=== PATIENT | female | born 1990 | race African-American/Black ===

== ENCOUNTER 2018-06-23 07:53 | Emergency (ER) | payer OTHER ==
[2018-06-23 07:59] VITALS: BMI 21.1
[2018-06-23] MEDS ORDERED: ONDANSETRON 4 MG/2 ML VIAL IVPUSH ONE (08:15)
[2018-06-23] MEDS ORDERED: ACETAMINOPHEN 1000 MG/100 ML VIAL (NON FORMULARY) IVPB ONE (08:15)
[2018-06-23] MEDS ORDERED: SODIUM CHLORIDE 1,000 ML IV STA (08:15)
--- NOTE | 2018-06-23 08:20 | PDOC ---
*Physical Exam - Vital Signs Last Vital Signs Temp Pulse Resp BP Pulse Ox 97.8 F 72 16 111/57 L 100 06/23/18 07:56 06/23/18 07:56 06/23/18 07:56 06/23/18 07:56 06/23/18 07:56 ED Treatment Course - LABORATORY CBC & Chemistry Diagram: 06/23/18 08:30 06/23/18 08:30 Medical Decision Making - Medical Decision Making 06/23/18 08:19 28 yo F presenting with a complaint of abdominal pain No fevers or chills (+) nausea predominantly RLQ pain Pt seen by Midlevel Provider under my direct supervision Pt interviewed and examined Ancillary studies reviewed I agree with plan as outlined by Midlevel Provider 06/23/18 11:24 Laboratory Tests 06/23/18 06/23/18 06/23/18 08:30 08:30 08:31 WBC 7.1 Hgb 13.7 Hct 39.3 Plt Count 243 Beta HCG, Quant 44412.9 Urine Ketones 1+ H Urine Blood Negative Urine Nitrite Negative Urine WBC (Auto) 10 Urine RBC (Auto) 1 U Epithel Cells (Auto) 4.6 Urine Bacteria (Auto) 22.356 06/23/18 11:24 US - 7 weeks 2 days, HR 140, Left ovarian septated cyst 06/23/18 11:25 Clinical Impression: normal , initial presentation *DC/Admit/Observation/Transfer Diagnosis at time of Disposition: Abdominal pain in - Discharge Dispostion Disposition: HOME Condition at time of disposition: Stable - Prescriptions Prescriptions: Cephalexin Monohydrate [Keflex -] 500 mg PO BID #14 capsule - Referrals Referrals: Montserrat Whatley [Primary Care Provider] - 2 Days - Patient Instructions Additional Instructions: Thank you for choosing [facility]. It was a pleasure taking care of you. You were found to be Please start taking prenatals daily Take Keflex for urine infection Stay hydrated Follow-up with [facility] for further care Return to the Emergency Department if your symptoms worsen or persist, you have fever, shortness of breath, chest pain, severe abdominal pain, vomiting, vaginal bleeding or other concerning symptoms. - Post Discharge Activity
[2018-06-23] MEDS ORDERED: ACETAMINOPHEN INJECTION 100 ML IVPB ONE (08:32)
[2018-06-23] MEDS ORDERED: ONDANSETRON 4 MG/2 ML VIAL ONE (08:33)
[2018-06-23 08:50] LABS: HCG,QUALITATIVE URINE Positive
--- NOTE | 2018-06-23 09:00 | PDOC ---
History of Present Illness - General Chief Complaint: Pain, Acute Stated Complaint: VOMITING/ABD PAIN/SORE THROAT Time Seen by Provider: 06/23/18 08:08 History Source: Patient Exam Limitations: No Limitations Past History - Past Medical History Allergies/Adverse Reactions: Allergies Allergy/AdvReac Type Severity Reaction Status Date / Time hinds flavor Allergy Severe ANAPHYLAXIS Verified 06/23/18 07:55 FROM [facility]ERRIES No Known Drug Allergies Allergy Verified 06/23/18 07:55 [facility]ERRIES Allergy Severe anaphylaxis Uncoded 06/23/18 07:55 Home Medications: Ambulatory Orders Cephalexin Monohydrate [Keflex -] 500 mg PO BID #14 capsule 06/23/18 Anemia: No Asthma: No Cancer: No Cardiac Disorders: No CVA: No COPD: No CHF: No Dementia: No Diabetes: No GI Disorders: No Disorders: No HTN: No Hypercholesterolemia: No Kidney Stones: No Liver Disease: No Seizures: No Thyroid Disease: No - Surgical History Abdominal Surgery: No Appendectomy: No Cardiac Surgery: No Cholecystectomy: No Lung Surgery: No Neurologic Surgery: No Orthopedic Surgery: No - Reproductive History Is Patient Now?: No (#): 8 Para: 2 Cervical CA: No Dysfunctional Uterine Bleeding: No Ectopic : No Endometrial CA: No PID: No Polycystic Ovaries: No Therapeutic (s) & number: Yes Tubal Ligation: No Spontaneous : 3 - Immunization History Immunization Up to Date: Yes - Suicide/Smoking/Psychosocial Hx Smoking History: Current every day smoker Have you smoked in the past 12 months: No Number of Cigarettes Smoked Daily: 10 Information on smoking cessation initiated: No 'Breaking Loose' booklet given: 09/01/15 Hx Alcohol Use: No Drug/Substance Use Hx: Yes (MARIJUANA) Substance Use Type: Marijuana Hx Substance Use Treatment: Yes (uncompleted 3E) Abd/GI Specific PMHX - Complaint Specific PMHX Hepatitis: No Pancreatitis: No *Physical Exam - Vital Signs Last Vital Signs Temp Pulse Resp BP Pulse Ox 97.8 F 72 16 111/57 L 100 06/23/18 07:56 06/23/18 07:56 06/23/18 07:56 06/23/18 07:56 06/23/18 07:56 - Physical Exam General Appearance: No: Apparent Distress Respiratory/Chest: positive: Lungs Clear, Normal Breath Sounds. negative: Respiratory Distress Cardiovascular: positive: Regular Rhythm, Regular Rate, S1, S2. negative: Murmur Female Pelvic Exam: positive: normal external exam, cervical os closed, adnexal tenderness (B/L adnexal tenderness). negative: discharge, lesions, vaginal bleeding Gastrointestinal/Abdominal: positive: Tender (diffuse TTP, more along RLQ), Soft. negative: Distended, Guarding, Rebound Integumentary: positive: Normal Color Neurologic: positive: Alert, Normal Mood/Affect Moderate Sedation - Procedure Monitoring Vital Signs: Procedure Monitoring Vital Signs Temperature 97.8 F 06/23/18 07:56 Pulse Rate 72 06/23/18 07:56 Respiratory Rate 16 06/23/18 07:56 Blood Pressure 111/57 L 06/23/18 07:56 O2 Sat by Pulse Oximetry (%) 100 06/23/18 07:56 ED Treatment Course - LABORATORY CBC & Chemistry Diagram: 06/23/18 08:30 06/23/18 08:30 Medical Decision Making - Medical Decision Making 28 y/o F with no sig pmh presents with lower abdominal pain and NBNB emesis from yesterday. LNMP May 2018 (has irregular periods). Denies fever, sob, cp, diarrhea, urinary complaints, vaginal discharge, vag bleeding. Denies prior abdominal surgeries. Denies heavy alcohol use. Only smokes marijuana occasionally. Consider appendicitis, ruptured ovarian cyst; not suspicious for ovarian torsion , PID Plan: r/o , labs, UA, IVF, Zofran, Tylenol, reassess 06/23/18 08:57 Patient found to be incidentally Bhcg >[id number] Pelvic ultrasound results pending to r/o ectopic 06/23/18 10:10 US confirms IUP; patient given copy of her ultrasound report UA shows 1+ leuks, mild pyuria - will treat given patient Patient has [facility] for follow-up Appears well, is tolerating PO Stable for dc 06/23/18 11:42 *DC/Admit/Observation/Transfer Diagnosis at time of Disposition: Abdominal pain in - Discharge Dispostion Disposition: HOME Condition at time of disposition: Stable Decision to Admit order: No - Prescriptions Prescriptions: Cephalexin Monohydrate [Keflex -] 500 mg PO BID #14 capsule - Referrals Referrals: Montserrat Whatley [Primary Care Provider] - 2 Days - Patient Instructions Additional Instructions: Thank you for choosing [facility]. It was a pleasure taking care of you. You were found to be Please start taking prenatals daily Take Keflex for urine infection Stay hydrated Follow-up with [facility] for further care Return to the Emergency Department if your symptoms worsen or persist, you have fever, shortness of breath, chest pain, severe abdominal pain, vomiting, vaginal bleeding or other concerning symptoms. - Post Discharge Activity
[2018-06-23 09:01] LABS: BASO % 0.7 % (0-2.0); EOS % 1.2 % (0-4.5); HEMATOCRIT 39.3 % (32.4-45.2); HEMOGLOBIN 13.7 GM/dL (10.7-15.3); LYMPH % 16.9 % (8-40); MCH 32.8 pg (25.7-33.7); MCHC 34.9 g/dl (32.0-36.0); MEAN CELL VOLUME 93.9 fl (80-96); MEAN PLT VOLUME 8.4 fl (7.5-11.1); NEUT % 73.2 % (42.8-82.8); PLATELET COUNT 243 K/MM3 (134-434); RBC 4.19 M/mm3 (3.60-5.2); RDW 13.9 % (11.6-15.6); WHITE BLOOD COUNT 7.1 K/mm3 (4.0-10.0)
[2018-06-23 09:03] LABS: EPI CELLS 4.6 /HPF (0-5); HYALINE CASTS 14 /hpf (0-8); PH,URINE 8.5 (5.0-8.0); URINE APPEARANCE CLEAR; URINE BACTERIA 22.356 /hpf (NEGATIVE); URINE BILIRUBIN NEGATIVE (<2.0 mg/dL); URINE COLOR YELLOW; URINE GLUCOSE (UA) NEGATIVE (NEGATIVE); URINE KETONE 1+ (NEGATIVE); URINE LEUK ESTERASE 1+ (NEGATIVE); URINE NITRITE NEGATIVE (NEGATIVE); URINE PROTEIN TRACE (NEGATIVE); URINE RBC 1 /hpf (0-4); URINE WBC 10 /hpf (0-5)
[2018-06-23 09:16] LABS: ALBUMIN 3.6 g/dl (3.4-5.0); ALK PHOS 53 U/L (45-117); ANION GAP 6 MMOL/L (8-16); BILIRUBIN,TOTAL 0.4 mg/dL (0.2-1); BLOOD UREA NITROGEN 6 mg/dL (7-18); CALCIUM 8.7 mg/dL (8.5-10.1); CHLORIDE 106 mmol/L (98-107); CO2 26 mmol/L (21-32); CREATININE 0.7 mg/dL (0.55-1.3); GLUCOSE,RANDOM 73 mg/dL (74-106); LIPASE 96 U/L (73-393); POTASSIUM 4.2 mmol/L (3.5-5.1); SGOT/AST 22 U/L (15-37); SGPT/ALT 20 U/L (13-61); SODIUM 137 mmol/L (136-145); TOT PROT 6.6 g/dl (6.4-8.2)
[2018-06-23] MEDS ORDERED: CEPHALEXIN MONOHYDRATE 500 MG CAPSULE (UD) PO ONE (11:30)
[2018-06-23] MEDS ORDERED: CEPHALEXIN MONOHYDRATE 500 MG CAPSULE (UD) ONE (11:38)
[2018-06-23 12:01] VITALS: BP 101/51; PULSE 62; TEMP 99.4
== END 2018-06-23 12:07 | disposition home or self-care (01) ==
LOC: JER 07:53
PROC: 3E033NZ Introduction of Analgesics, Hypnotics, Sedatives into Peripheral Vein, Percutaneous Approach (ICD-10-PCS; principal; 2018-06-23)
PROC: 3E033GC Introduction of Other Therapeutic Substance into Peripheral Vein, Percutaneous Approach (ICD-10-PCS; 2018-06-23)
DX: O26.891 Other specified pregnancy related conditions, first trimester (principal); O23.31 Infections of other parts of urinary tract in pregnancy, first trimester; O34.81 Maternal care for other abnormalities of pelvic organs, first trimester; N83.292 Other ovarian cyst, left side; Z3A.01 Less than 8 weeks gestation of pregnancy
CPT/HCPCS: 36415; 76817-TC; 80053; 81003; 83690; 84702; 84703; 85025; 96374; 96375; 99283-25; J0131; J7030

== ENCOUNTER 2018-12-17 09:50 | Emergency (ER) | payer OTHER | END 2018-12-17 14:00 | disposition home or self-care (01) | LOC: JER 09:50 ==

== ENCOUNTER 2018-12-18 17:36 | Emergency (ER) | payer OTHER ==
--- NOTE | 2018-12-18 17:51 | PDOC ---
Rapid Medical Evaluation Medical Evaluation: Allergies Allergy/AdvReac Type Severity Reaction Status Date / Time hinds flavor Allergy Severe ANAPHYLAXIS Verified 12/17/18 11:08 FROM [facility]ERRIES No Known Drug Allergies Allergy Verified 12/17/18 11:08 [facility]ES Allergy Severe anaphylaxis Uncoded 12/17/18 11:08 I have performed a brief in-person evaluation of this patient. The patient presents with a chief complaint of: c/o vaginal bleeding x 3 days; was seen yesterday and had full workup done; states returned as bleeding got heavier along with passing clots Pertinent physical exam findings: In nad, pelvic deferred I have ordered the following: bhcg, pelvic US The patient will proceed to the ED for further evaluation. 12/18/18 17:50 Discharge Disposition - Referrals Referrals: Montserrat Whatley [Primary Care Provider] - - Patient Instructions - Post Discharge Activity
[2018-12-18 17:54] VITALS: TEMP 98.9; BMI 21.9
--- NOTE | 2018-12-18 19:25 | PDOC ---
History of Present Illness - General Chief Complaint: Vaginal Bleeding Stated Complaint: Vaginal Bleeding Time Seen by Provider: 12/18/18 17:50 History Source: Patient - History of Present Illness Initial Comments: 12/18/18 19:25 28 y/o F [id number] who presents to the ER today for repeat beta hcg abd US. patient seen in Ed yesterday. The patient states that she took a home test last week. today with minimal bleeding using a liner. denies pelvic pain, NV, urinary symptoms. Past History - Past Medical History Allergies/Adverse Reactions: Allergies Allergy/AdvReac Type Severity Reaction Status Date / Time hinds flavor Allergy Severe ANAPHYLAXIS Verified 12/18/18 17:53 FROM [facility]ERRIES No Known Drug Allergies Allergy Verified 12/18/18 17:53 [facility]ES Allergy Severe anaphylaxis Uncoded 12/18/18 17:53 Home Medications: Ambulatory Orders NK [No Known Home Medication] 12/17/18 Anemia: No Asthma: No Cancer: No Cardiac Disorders: No CVA: No COPD: No CHF: No Dementia: No Diabetes: No GI Disorders: No Disorders: No HTN: No Hypercholesterolemia: No Kidney Stones: No Liver Disease: No Psychiatric Problems: Yes (panic attacks) Seizures: No Thyroid Disease: No - Surgical History Abdominal Surgery: No Appendectomy: No Cardiac Surgery: No Cholecystectomy: No Lung Surgery: No Neurologic Surgery: No Orthopedic Surgery: No - Reproductive History (#): 8 Para: 2 Cervical CA: No Dysfunctional Uterine Bleeding: No Ectopic : No Endometrial CA: No PID: No Polycystic Ovaries: No Therapeutic (s) & number: Yes Tubal Ligation: No Spontaneous : 3 - Immunization History Immunization Up to Date: Yes - Suicide/Smoking/Psychosocial Hx Smoking History: Current every day smoker Have you smoked in the past 12 months: No Number of Cigarettes Smoked Daily: 0 Information on smoking cessation initiated: Yes 'Breaking Loose' booklet given: 09/01/15 Hx Alcohol Use: No Drug/Substance Use Hx: No Substance Use Type: Marijuana Hx Substance Use Treatment: Yes (uncompleted 3E) Abd/GI Specific PMHX - Complaint Specific PMHX Hepatitis: No Pancreatitis: No Review of Systems - Review of Systems Able to Perform ROS?: Yes Is the patient limited [place] proficient: No Constitutional: No: Symptoms Reported, See HPI, Chills, Diaphoresis, Fever, Loss of Appetite, Malaise, Night Sweats, Weakness, Weight Stable, Unintentional Wgt. Loss, Unexplained wgt Loss, Other ABD/GI: No: Symptoms Reported, See HPI, Abdominal Distended, Abd. Pain w/ defecation, Blood Streaked Bowels, Constipated, Diarrhea, Difficulty Swallowing , Nausea, Poor Appetite, Poor Fluid Intake, Rectal Bleeding, Vomiting, Indigestion, Abdominal cramping, Tarry Stools, Other : Yes: Other (vaginal bleeding) *Physical Exam - Vital Signs Last Vital Signs Temp Pulse Resp BP Pulse Ox 98.9 F 77 17 115/75 100 12/18/18 17:51 12/18/18 17:51 12/18/18 17:51 12/18/18 17:51 12/18/18 17:51 - Physical Exam General Appearance: Yes: Moderate Distress Respiratory/Chest: positive: Lungs Clear, Normal Breath Sounds Gastrointestinal/Abdominal: positive: Normal Bowel Sounds, Soft. negative: Tender Integumentary: positive: Normal Color, Dry, Warm Neurologic: positive: load out worker II-XII NML intact, Fully Oriented, Alert, Normal Mood/ Affect ED Treatment Course - ADDITIONAL ORDERS Additional order review: Laboratory Results 12/18/18 18:06 Beta HCG, Quant 146.1 Progress Note - Progress Note Progress Note: A: miscarriage P: labs TVUS *DC/Admit/Observation/Transfer Diagnosis at time of Disposition: Miscarriage - Discharge Dispostion Disposition: HOME - Referrals Referrals: Montserrat Whatley [Primary Care Provider] - - Patient Instructions Printed Discharge Instructions: DI for Vaginal Bleeding Additional Instructions: return to the ER if you are soaking 2 pads per hour, severe abdominal pain, or worsening symptoms. 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
[2018-12-18 20:00] VITALS: BP 105/51; PULSE 76
== END 2018-12-18 20:01 | disposition home or self-care (01) ==
LOC: JER 17:36
DX: O26.891 Other specified pregnancy related conditions, first trimester (principal); O02.1 Missed abortion; Z3A.01 Less than 8 weeks gestation of pregnancy
CPT/HCPCS: 36415; 76817-TC; 84702; 99283-25

== ENCOUNTER 2019-11-12 14:42 | Emergency (ER) | payer OTHER ==
[2019-11-12 14:50] VITALS: BP 118/77; PULSE 76; TEMP 98.9; BMI 29.7
[2019-11-12] MEDS ORDERED: ACETAMINOPHEN 500 MG TABLET (FP) PO ONE (14:52)
--- NOTE | 2019-11-12 14:52 | PDOC ---
Rapid Medical Evaluation Chief Complaint: Pain, Acute Time Seen by Provider: 11/12/19 14:48 Medical Evaluation: Allergies Allergy/AdvReac Type Severity Reaction Status Date / Time hinds flavor Allergy Severe ANAPHYLAXIS Verified 12/18/18 17:53 FROM [facility]ERRIES No Known Drug Allergies Allergy Verified 12/18/18 17:53 [facility] Allergy Severe anaphylaxis Uncoded 12/18/18 17:53 11/12/19 14:48 I have performed a brief in-person evaluation of this patient. CC: lower abd pain x2 weeks; LMP- 09/24 PE: No focal findings Orders: labs, urine Patient will proceed to ED for further evaluation. Discharge Disposition - Diagnosis Lower abdominal pain - Discharge Dispostion Condition at time of disposition: Stable - Referrals - Patient Instructions - Post Discharge Activity
[2019-11-12] MEDS ORDERED: ACETAMINOPHEN 325 MG TABLET (FP) ONE (15:10)
[2019-11-12 15:22] LABS: BASO % 1.3 % (0-2.0); EOS % 3.1 % (0-4.5); HEMOGLOBIN 14.3 GM/dL (10.7-15.3); LYMPH % 33.2 % (8-40); MCH 30.7 pg (25.7-33.7); MCHC 33.2 g/dl (32.0-36.0); MEAN CELL VOLUME 92.5 fl (80-96); MEAN PLT VOLUME 9.2 fl (7.5-11.1); NEUT % 50.4 % (42.8-82.8); PLATELET COUNT 275 K/MM3 (134-434); RBC 4.65 M/mm3 (3.60-5.2); RDW 14.5 % (11.6-15.6)
[2019-11-12 15:23] LABS: URINE APPEARANCE Error; URINE BILIRUBIN NEGATIVE (NEGATIVE); URINE COLOR YELLOW; URINE GLUCOSE (UA) NEGATIVE (NEGATIVE); URINE KETONE NEGATIVE (NEGATIVE); URINE LEUK ESTERASE NEGATIVE (NEGATIVE); URINE NITRITE NEGATIVE (NEGATIVE); URINE PROTEIN NEGATIVE (NEGATIVE)
[2019-11-12 15:27] LABS: HCG,QUALITATIVE URINE Negative
--- NOTE | 2019-11-12 15:27 | PDOC ---
History of Present Illness - General Chief Complaint: Pain, Acute Stated Complaint: ABD PAIN Time Seen by Provider: 11/12/19 14:48 History Source: Patient - History of Present Illness Timing/Duration: reports: intermittent Quality: reports: mild Past History - Medical History Allergies/Adverse Reactions: Allergies Allergy/AdvReac Type Severity Reaction Status Date / Time hinds flavor Allergy Severe ANAPHYLAXIS Verified 12/18/18 17:53 FROM [facility]ERRIES No Known Drug Allergies Allergy Verified 12/18/18 17:53 [facility]ES Allergy Severe anaphylaxis Uncoded 12/18/18 17:53 Home Medications: Ambulatory Orders NK [No Known Home Medication] 12/17/18 Anemia: No Asthma: No Cancer: No Cardiac Disorders: No CVA: No COPD: No CHF: No Dementia: No Diabetes: No GI Disorders: No Disorders: No HTN: No Hypercholesterolemia: No Kidney Stones: No Liver Disease: No Psychiatric Problems: Yes (panic attacks) Seizures: No Thyroid Disease: No - Surgical History Abdominal Surgery: No Appendectomy: No Cardiac Surgery: No Cholecystectomy: No Lung Surgery: No Neurologic Surgery: No Orthopedic Surgery: No - Reproductive History Is Patient Now?: No (#): 8 Para: 2 Cervical CA: No Dysfunctional Uterine Bleeding: No Ectopic : No Endometrial CA: No PID: No Polycystic Ovaries: No Therapeutic (s) & number: Yes Tubal Ligation: No Spontaneous : 3 - Immunization History Immunization Up to Date: Yes - Psycho-Social/Smoking History Smoking History: Current every day smoker Have you smoked in the past 12 months: Yes Number of Cigarettes Smoked Daily: 0 Information on smoking cessation initiated: No 'Breaking Loose' booklet given: 09/01/15 - Substance Abuse Hx (Audit-C & DAST Scrn) How often the patient has a drink containing alcohol: Never Score: In Men: 4 or > Positive; In Women: 3 or > Positive: 0 Screen Result (Pos requires Nsg. Audit-10AR): Negative In the last yr the pt used illegal drug/Rx for NonMed reason: No Score: Yes response is considered Positive: 0 Screen Result (Positive result requires Nsg. DAST-10): Negative Abd/GI Specific PMHX - Complaint Specific PMHX Hepatitis: No Pancreatitis: No Review of Systems - Review of Systems Constitutional: No: Chills, Fever ABD/GI: No: Blood Streaked Bowels, Constipated, Diarrhea, Nausea, Vomiting, Tarry Stools : No: Dysuria, Flank Pain *Physical Exam - Vital Signs Last Vital Signs Temp Pulse Resp BP Pulse Ox 98.9 F 76 18 118/77 100 11/12/19 14:46 11/12/19 14:46 11/12/19 14:46 11/12/19 14:46 11/12/19 14:46 - Physical Exam General Appearance: Yes: Appropriately Dressed. No: Apparent Distress HEENT: positive: Normal Voice Neck: positive: Supple Respiratory/Chest: negative: Respiratory Distress Gastrointestinal/Abdominal: positive: Soft. negative: Tender Musculoskeletal: negative: CVA Tenderness Integumentary: positive: Dry, Warm Neurologic: positive: Fully Oriented, Alert, Normal Mood/Affect ED Treatment Course - LABORATORY CBC & Chemistry Diagram: 11/12/19 15:00 11/12/19 15:00 - ADDITIONAL ORDERS Additional order review: Laboratory Results 11/12/19 15:00 Urine Color Yellow Urine Appearance Error Urine pH 7.0 D Ur Specific [place] 1.022 Urine Protein Negative Urine Glucose (UA) Negative Urine Ketones Negative Urine Blood Negative Urine Nitrite Negative Urine Bilirubin Negative Urine Urobilinogen 1.0 Ur Leukocyte Esterase Negative 11/12/19 15:00 RBC 4.65 MCV 92.5 MCHC 33.2 RDW 14.5 MPV 9.2 Neutrophils % 50.4 D Lymphocytes % 33.2 D Monocytes % 12.0 H Eosinophils % 3.1 Basophils % 1.3 - Medications Given in the ED: ED Medications Discontinued Medications Generic Name Dose Route Start Last Admin Trade Name Yandel PRN Reason Stop Dose Admin Acetaminophen 975 mg 11/12/19 14:52 11/12/19 15:13 Tylenol - PO 11/12/19 14:53 975 mg ONCE ONE Administration Medical Decision Making - Medical Decision Making 11/12/19 15:26 29 yo F, , s/p multiple spontaneous and elec abs, LMP 09/24 and here w/ lower abd discomfort on and off x 2 weeks. No bag discharge, dysuria, change in BM, n/v/f/c. States she gets menses once a month but that "sometimes I'm irregular". Has not taken a home preg test see exam Lower abd pain x 2 weeks Asx now Well mingo and stable w/ benign abd Labs/ua wnl, upreg neg Will not image at this time given duration of sxs and unimpressive abd To return as needed, otherwise f/u with PMD Discharge - Discharge Information Problems reviewed: Yes Clinical Impression/Diagnosis: Lower abdominal pain Condition: Improved Disposition: HOME - Follow up/Referral Referrals: Montserrat Whatley [Primary Care Provider] - - Patient Discharge Instructions Patient Printed Discharge Instructions: DI for Abdominal Pain-Adult Additional Instructions: The cause of your abdominal pain is unclear at this time as your labs were all normal Please follow up with your PMD if pain persists - Post Discharge Activity
[2019-11-12 15:45] LABS: ALBUMIN 3.8 g/dl (3.4-5.0); ALK PHOS 65 U/L (45-117); ANION GAP 10 MMOL/L (8-16); BILIRUBIN,TOTAL 0.5 mg/dL (0.2-1); BLOOD UREA NITROGEN 11.3 mg/dL (7-18); CALCIUM 9.1 mg/dL (8.5-10.1); CHLORIDE 106 mmol/L (98-107); CO2 24 mmol/L (21-32); CREATININE 0.9 mg/dL (0.55-1.3); GLUCOSE,RANDOM 81 mg/dL (74-106); POTASSIUM 4.2 mmol/L (3.5-5.1); SGOT/AST 22 U/L (15-37); SGPT/ALT 13 U/L (13-61); SODIUM 141 mmol/L (136-145); TOT PROT 7.2 g/dl (6.4-8.2)
== END 2019-11-12 16:24 | disposition home or self-care (01) ==
LOC: JER 14:42
DX: R10.30 Lower abdominal pain, unspecified (principal)
CPT/HCPCS: 36415; 80053; 81003; 84702; 84703; 85025; 87086; 87186; 99283-25

== ENCOUNTER 2019-11-26 12:18 | Emergency (ER) | payer OTHER ==
[2019-11-26 12:24] VITALS: BP 140/84; PULSE 95; TEMP 98.9; BMI 30.7
--- NOTE | 2019-11-26 12:24 | PDOC ---
Rapid Medical Evaluation Time Seen by Provider: 11/26/19 12:22 Medical Evaluation: Allergies Allergy/AdvReac Type Severity Reaction Status Date / Time hinds flavor Allergy Severe ANAPHYLAXIS Verified 11/26/19 12:20 FROM [facility] No Known Drug Allergies Allergy Verified 11/26/19 12:20 [facility] Allergy Severe anaphylaxis Uncoded 11/26/19 12:20 11/26/19 12:22 HPI: 29 year old female complaining of pelvic discomfort and lower abdominal pain, treated for BV 1 week ago here without improvement. Sexual partner also tested positive for HSV 1 and 2. No BC. denies n/v/d PE: Differed A/P: Differed to provider Pt to precede to ED for further eval and treatment
--- NOTE | 2019-11-26 14:06 | PDOC ---
History of Present Illness - General Chief Complaint: Pain Stated Complaint: PELVIC PAIN Time Seen by Provider: 11/26/19 12:22 History Source: Patient Exam Limitations: No Limitations - History of Present Illness Travel History: No Initial Comments: 11/26/19 14:02 29-year-old female presents to ED with complaints of pelvic cramping for the pas t 2 days. Patient states she just finished metronidazole for BV patient denies fever but states whitish discharge continues without an order. Patient is concerned since she was told by her boyfriend that he has history of herpes but has no active lesions. Patient is requesting STD work-up. Patient denies dyspareunia 11/26/19 14:02 Timing/Duration: reports: changing over time Quality: reports: mild, cramping Abdominal Pain Onset Location: reports: suprapubic Pain Radiation: reports: no radiation Activities at Onset: reports: none Aggravating Factors: improves with: None Alleviating Factors: improves with: None Past History - Travel History Traveled outside of the country in the last 30 days: No Close contact w/someone who was outside of country & ill: No - Medical History Allergies/Adverse Reactions: Allergies Allergy/AdvReac Type Severity Reaction Status Date / Time hinds flavor Allergy Severe ANAPHYLAXIS Verified 11/26/19 12:20 FROM [facility]ERRI[facility] No Known Drug Allergies Allergy Verified 11/26/19 12:20 [facility] Allergy Severe anaphylaxis Uncoded 11/26/19 12:20 Home Medications: Ambulatory Orders NK [No Known Home Medication] 11/26/19 Anemia: No Asthma: No Cancer: No Cardiac Disorders: No CVA: No COPD: No CHF: No Dementia: No Diabetes: No GI Disorders: No Disorders: No HTN: No Hypercholesterolemia: No Kidney Stones: No Liver Disease: No Psychiatric Problems: Yes (panic attacks) Seizures: No Thyroid Disease: No - Surgical History Abdominal Surgery: No Appendectomy: No Cardiac Surgery: No Cholecystectomy: No Lung Surgery: No Neurologic Surgery: No Orthopedic Surgery: No - Reproductive History Is Patient Now?: No (#): 8 Para: 2 Cervical CA: No Dysfunctional Uterine Bleeding: No Ectopic : No Endometrial CA: No PID: No Polycystic Ovaries: No Therapeutic (s) & number: Yes Tubal Ligation: No Spontaneous : 3 - Immunization History Immunization Up to Date: Yes - Psycho-Social/Smoking History Patient Lives Alone: No Lives with/in: spouse/SO Smoking History: Current every day smoker Have you smoked in the past 12 months: Yes Number of Cigarettes Smoked Daily: 0 Information on smoking cessation initiated: No 'Breaking Loose' booklet given: 09/01/15 - Substance Abuse Hx (Audit-C & DAST Scrn) How often the patient has a drink containing alcohol: Monthly or less Number of drinks the patient has on a typical day: 1 or 2 How often the patient has six or more drinks on one occasion: Never Score: In Men: 4 or > Positive; In Women: 3 or > Positive: 1 Screen Result (Pos requires Nsg. Audit-10AR): Negative In the last yr the pt used illegal drug/Rx for NonMed reason: No Score: Yes response is considered Positive: 0 Screen Result (Positive result requires Nsg. DAST-10): Negative Abd/GI Specific PMHX - Complaint Specific PMHX Hepatitis: No Pancreatitis: No Review of Systems - Review of Systems Able to Perform ROS?: No Is the patient limited [place] Citizen proficient: No Constitutional: No: Symptoms Reported HEENTM: No: Symptoms Reported Respiratory: No: Symptoms reported Cardiac (ROS): No: Symptoms Reported ABD/GI: Yes: Abdominal cramping : Yes: Discharge. No: Dysuria, Frequency, Flank Pain Musculoskeletal: No: Symptoms Reported Integumentary: No: Symptoms Reported Neurological: No: Symptoms reported Endocrine: No: Symptoms Reported Hematologic/Lymphatic: No: Symptoms Reported *Physical Exam - Vital Signs Last Vital Signs Temp Pulse Resp BP Pulse Ox 98.9 F 95 H 18 140/84 100 11/26/19 12:21 11/26/19 12:21 11/26/19 12:21 11/26/19 12:21 11/26/19 12:21 - Physical Exam General Appearance: Yes: Nourished, Appropriately Dressed. No: Apparent Distress Neck: positive: Supple Respiratory/Chest: positive: Lungs Clear, Normal Breath Sounds. negative: Respiratory Distress, Accessory Muscle Use Cardiovascular: positive: Regular Rhythm, Regular Rate. negative: Murmur Female Pelvic Exam: positive: cervical os closed, normal adnexa, CMT, discharge (Nonodorous white discharge in copious amount) Gastrointestinal/Abdominal: positive: Soft. negative: Tenderness Extremity: positive: Normal Inspection Integumentary: positive: Normal Color, Warm, Moist Neurologic: positive: Motor Strength 5/5 (ambulatory) ED Treatment Course - RADIOLOGY Radiology Studies Ordered: Category Date Time Status TRANSVAGINAL ULTRASOUND US [US] Stat Ultrasound 11/26/19 12:56 Ordered Medical Decision Making - Medical Decision Making 11/26/19 14:07 Chief complaint: Vaginal discharge or suprapubic tenderness. Patient recently treated with BV concerning for other STDs. Patient requesting work-up here patient has no other complaints. Exam: Patient with no CMT or adnexal tenderness but did have a whitish nonodorous discharge on exam no abdominal tenderness. Plan: Urine urine culture urine GC chlamydia genital culture along with ultrasound ordered 11/26/19 16:20 Laboratory Tests 11/26/19 14:15 Urine Ketones Negative Urine Blood Negative Urine Nitrite Negative Urine Bilirubin Negative Ur Leukocyte Esterase Negative Urine HCG, Qual Negative Patient will be treated for PID based on history of present illness along with complaints. Patient be notified of any cultures that may come back that are positive. Discharge - Discharge Information Problems reviewed: Yes Clinical Impression/Diagnosis: Pelvic pain Condition: Good Disposition: HOME - Follow up/Referral Referrals: Montserrat Whatley [Primary Care Provider] - - Patient Discharge Instructions Patient Printed Discharge Instructions: DI for Pelvic Pain Additional Instructions: Please take Doxycycline as prescribed You will be notified of all results - Post Discharge Activity
[2019-11-26 14:55] LABS: PH,URINE 6.5 (5.0-8.0); URINE APPEARANCE CLEAR; URINE BILIRUBIN NEGATIVE (NEGATIVE); URINE COLOR YELLOW; URINE GLUCOSE (UA) NEGATIVE (NEGATIVE); URINE KETONE NEGATIVE (NEGATIVE); URINE LEUK ESTERASE NEGATIVE (NEGATIVE); URINE NITRITE NEGATIVE (NEGATIVE); URINE PROTEIN NEGATIVE (NEGATIVE)
[2019-11-26 14:57] LABS: HCG,QUALITATIVE URINE Negative
== END 2019-11-26 16:45 | disposition home or self-care (01) ==
LOC: JER 12:18
DX: R10.2 Pelvic and perineal pain (principal)
CPT/HCPCS: 36415; 76830-TC; 81003; 84703; 87070; 87086; 87205; 87491; 87591; 99284-25

== ENCOUNTER 2020-02-18 18:18 | Emergency (ER) | payer OTHER ==
[2020-02-18] MEDS ORDERED: AZITHROMYCIN 250 MG TABLET PO ONE (18:25)
[2020-02-18 18:31] VITALS: BP 152/86; PULSE 86; TEMP 98.4; BMI 32.1
[2020-02-18] MEDS ORDERED: AZITHROMYCIN 250 MG TABLET ONE (18:48)
[2020-02-18 20:02] LABS: EPI CELLS >36 /uL (0-25.1); HYALINE CASTS 4 /uL (0-3.1); URINE APPEARANCE CLOUDY; URINE BACTERIA 227 /uL (0-1359); URINE BILIRUBIN NEGATIVE (NEGATIVE); URINE COLOR YELLOW; URINE GLUCOSE (UA) NEGATIVE (NEGATIVE); URINE KETONE TRACE (NEGATIVE); URINE LEUK ESTERASE 1+ (NEGATIVE); URINE NITRITE NEGATIVE (NEGATIVE); URINE PROTEIN NEGATIVE (NEGATIVE); URINE RBC 17 /uL (0-23.9); URINE WBC 98 /uL (0-25.8)
[2020-02-18 20:03] LABS: HCG,QUALITATIVE URINE Positive
== END 2020-02-18 19:29 | disposition home or self-care (01) ==
LOC: JERFT 18:18 → JER 18:18 → JERFT 19:29
DX: N89.8 Other specified noninflammatory disorders of vagina (principal)
CPT/HCPCS: 36415; 81003; 84703; 87070; 87077; 87086; 87205; 87491; 87591; 99283-25

== ENCOUNTER 2020-10-29 17:57 | Emergency (ER) | payer OTHER ==
[2020-10-29 18:08] VITALS: BP 129/89; PULSE 72; TEMP 97.8; BMI 33.6
[2020-10-29] MEDS ORDERED: IBUPROFEN 600 MG TABLET (FP) PO ONE ×2 (18:52→18:53)
== END 2020-10-29 20:36 | disposition home or self-care (01) ==
LOC: JERFT 17:57
DX: S93.402A Sprain of unspecified ligament of left ankle, initial encounter (principal)
CPT/HCPCS: 73610-TC-LT-FY; 73630-TC-LT; 99284-25

== ENCOUNTER 2020-11-23 15:42 | Emergency (ER) | payer OTHER ==
[2020-11-23 15:48] VITALS: BP 125/78; PULSE 73; TEMP 97.6; BMI 36.0
[2020-11-23 17:39] LABS: BASO % 0.9 % (0-2.0); EOS % 4.7 % (0-4.5); HEMATOCRIT 41.7 % (32.4-45.2); HEMOGLOBIN 14.2 GM/dL (10.7-15.3); LYMPH % 36.7 % (8-40); MCH 31.7 pg (25.7-33.7); MCHC 34.2 g/dl (32.0-36.0); MEAN CELL VOLUME 92.8 fl (80-96); MEAN PLT VOLUME 8.9 fl (7.5-11.1); MONO % 8.5 % (3.8-10.2); NEUT % 49.2 % (42.8-82.8); PLATELET COUNT 304 10^3/uL (134-434); RBC 4.49 M/mm3 (3.60-5.2); RDW 14.6 % (11.6-15.6); WHITE BLOOD COUNT 6.8 K/mm3 (4.0-10.0)
[2020-11-23 17:54] LABS: CHLORIDE 106 mmol/L (98-107); SODIUM 139 mmol/L (136-145)
[2020-11-23 17:57] LABS: ALBUMIN 3.6 g/dl (3.4-5.0); ANION GAP 7 MMOL/L (8-16); BLOOD UREA NITROGEN 8.1 mg/dL (7-18); CALCIUM 9.1 mg/dL (8.5-10.1); CO2 26 mmol/L (21-32); GLUCOSE,RANDOM 81 mg/dL (74-106)
[2020-11-23 18:00] LABS: CREATININE 0.9 mg/dL (0.55-1.3); SGOT/AST 20 U/L (15-37); SGPT/ALT 18 U/L (13-61)
[2020-11-23 18:02] LABS: BILIRUBIN,TOTAL 0.9 mg/dL (0.2-1); TOT PROT 7.1 g/dl (6.4-8.2)
[2020-11-23 18:03] LABS: ALK PHOS 59 U/L (45-117)
[2020-11-23 19:23] LABS: PH,URINE 7.5 (5.0-8.0); URINE APPEARANCE CLEAR; URINE BILIRUBIN NEGATIVE (NEGATIVE); URINE COLOR YELLOW; URINE GLUCOSE (UA) NEGATIVE (NEGATIVE); URINE KETONE NEGATIVE (NEGATIVE); URINE LEUK ESTERASE NEGATIVE (NEGATIVE); URINE NITRITE NEGATIVE (NEGATIVE); URINE PROTEIN NEGATIVE (NEGATIVE); URINE UROBILINOGEN 0.2 mg/dL (0.2-1.0)
== END 2020-11-23 22:24 | disposition home or self-care (01) ==
LOC: JER 15:42
DX: N94.6 Dysmenorrhea, unspecified (principal)
CPT/HCPCS: 36415; 76775-TC; 76830-TC; 80053; 81003; 84702; 85025; 86850; 86900; 86901; 87086; 99284-25

== ENCOUNTER 2021-03-18 19:16 | Emergency (ER) | payer OTHER ==
[2021-03-18 20:26] VITALS: BP 106/67; PULSE 72; TEMP 98.4; BMI 38.7
[2021-03-18] MEDS ORDERED: SODIUM CHLORIDE 0.9% 500 ML INFUS.BAG IV ONE (20:50)
[2021-03-18] MEDS ORDERED: ONDANSETRON 4 MG/2 ML VIAL IVPUSH ONE (20:50)
[2021-03-18] MEDS ORDERED: ONDANSETRON 4 MG/2 ML VIAL ONE (20:57)
[2021-03-18 21:39] LABS: BASO % 0.8 % (0-2.0); EOS % 3.7 % (0-4.5); HEMATOCRIT 40.2 % (32.4-45.2); HEMOGLOBIN 13.7 GM/dL (10.7-15.3); LYMPH % 40.9 % (8-40); MEAN CELL VOLUME 91.3 fl (80-96); MONO % 10.2 % (3.8-10.2); NEUT % 44.4 % (42.8-82.8); PLATELET COUNT 277 10^3/uL (134-434); RBC 4.41 M/mm3 (3.60-5.2); RDW 13.9 % (11.6-15.6); WHITE BLOOD COUNT 5.7 K/mm3 (4.0-10.0)
[2021-03-18 22:06] LABS: CALCIUM 8.6 mg/dL (8.5-10.1)
[2021-03-18 22:07] LABS: ALBUMIN 3.1 g/dl (3.4-5.0); BLOOD UREA NITROGEN 4.8 mg/dL (7-18)
[2021-03-18 22:10] LABS: CREATININE 0.9 mg/dL (0.55-1.3)
[2021-03-18 22:11] LABS: BILIRUBIN,TOTAL 0.4 mg/dL (0.2-1); TOT PROT 6.8 g/dl (6.4-8.2)
[2021-03-18 22:38] LABS: EPI CELLS >36 /uL (0-25.1); HYALINE CASTS 6 /uL (0-3.1); PH,URINE 6.5 (5.0-8.0); URINE APPEARANCE CLOUDY; URINE BACTERIA 5074 /uL (0-1359); URINE BILIRUBIN NEGATIVE (NEGATIVE); URINE COLOR YELLOW; URINE GLUCOSE (UA) NEGATIVE (NEGATIVE); URINE KETONE TRACE (NEGATIVE); URINE LEUK ESTERASE TRACE (NEGATIVE); URINE NITRITE POSITIVE (NEGATIVE); URINE PROTEIN NEGATIVE (NEGATIVE); URINE RBC 9 /uL (0-23.9); URINE UROBILINOGEN 0.2 mg/dL (0.2-1.0); URINE WBC 76 /uL (0-25.8)
== END 2021-03-19 00:16 | disposition home or self-care (01) ==
LOC: JER 19:16
PROC: 3E033GC Introduction of Other Therapeutic Substance into Peripheral Vein, Percutaneous Approach (ICD-10-PCS; principal; 2021-03-18)
DX: O21.9 Vomiting of pregnancy, unspecified (principal); Z3A.01 Less than 8 weeks gestation of pregnancy
CPT/HCPCS: 36415; 80053; 81003; 84702; 85025; 87086; 87804; 99284-25; C9803; U0003; U0005

== ENCOUNTER 2022-02-17 19:03 | Emergency (ER) | payer OTHER ==
[2022-02-17 19:18] VITALS: BP 115/71; PULSE 54; RESP 18; TEMP 97.8; BMI 20.9
[2022-02-17] MEDS ORDERED: ACETAMINOPHEN 500 MG TABLET (FP) PO ONE (21:01)
[2022-02-17] MEDS ORDERED: ACETAMINOPHEN 500 MG TABLET (FP) ONE (21:19)
[2022-02-17 21:44] LABS: BASO % 1.1 % (0-2.0); EOS % 3.3 % (0-4.5); HEMATOCRIT 40.4 % (32.4-45.2); HEMOGLOBIN 13.5 GM/dL (10.7-15.3); MCHC 33.4 g/dl (32.0-36.0); MEAN PLT VOLUME 9.1 fl (7.5-11.1); MONO % 6.9 % (3.8-10.2); NEUT % 39.7 % (42.8-82.8); PLATELET COUNT 275 10^3/uL (134-434); RBC 4.35 M/mm3 (3.60-5.2); RDW 14.4 % (11.6-15.6); WHITE BLOOD COUNT 6.5 K/mm3 (4.0-10.0)
[2022-02-17 21:56] LABS: CHLORIDE 110 mmol/L (98-107); EPI CELLS 35 /uL (0-25.1); HYALINE CASTS 3 /uL (0-3.1); PH,URINE 5.5 (5.0-8.0); SODIUM 144 mmol/L (136-145); URINE APPEARANCE CLEAR; URINE BACTERIA 76 /uL (0-1359); URINE BILIRUBIN NEGATIVE (NEGATIVE); URINE COLOR YELLOW; URINE GLUCOSE (UA) NEGATIVE (NEGATIVE); URINE KETONE TRACE (NEGATIVE); URINE LEUK ESTERASE TRACE (NEGATIVE); URINE NITRITE NEGATIVE (NEGATIVE); URINE PROTEIN TRACE (NEGATIVE); URINE RBC 35 /uL (0-23.9); URINE WBC 29 /uL (0-25.8)
[2022-02-17 21:58] LABS: CALCIUM 9.1 mg/dL (8.5-10.1)
[2022-02-17 21:59] LABS: ALBUMIN 3.8 g/dl (3.4-5.0); ANION GAP 7 MMOL/L (8-16); BLOOD UREA NITROGEN 11.1 mg/dL (7-18); CO2 27 mmol/L (21-32); GLUCOSE,RANDOM 87 mg/dL (74-106)
[2022-02-17 22:02] LABS: CREATININE 0.9 mg/dL (0.55-1.3); SGOT/AST 18 U/L (15-37); SGPT/ALT 17 U/L (13-61)
[2022-02-17 22:04] LABS: BILIRUBIN,TOTAL 0.3 mg/dL (0.2-1); TOT PROT 6.7 g/dl (6.4-8.2)
[2022-02-17 22:05] LABS: ALK PHOS 63 U/L (45-117); INR 1.1 (0.83-1.09); PROTHROMBIN TIME (PATIENT) 12.7 SEC (9.7-13.0)
[2022-02-17 22:08] LABS: ACTIVATED PTT 32.9 SECONDS (25.2-36.5)
== END 2022-02-17 22:56 | disposition home or self-care (01) ==
LOC: JER 19:03
DX: N93.9 Abnormal uterine and vaginal bleeding, unspecified (principal)
CPT/HCPCS: 36415; 80053; 81003; 84702; 85025; 85610; 85730; 86850; 86900; 86901; 87086; 99283-25

== ENCOUNTER 2022-04-12 02:11 | Emergency (ER) | payer OTHER ==
[2022-04-12 02:19] VITALS: BP 116/62; PULSE 73; RESP 18; TEMP 97.6; BMI 20.9
[2022-04-12] MEDS ORDERED: SODIUM CHLORIDE 0.9% 500 ML INFUS.BAG IV ONE (03:15)
[2022-04-12] MEDS ORDERED: ONDANSETRON 4 MG/2 ML VIAL IVPB ONE (03:15)
[2022-04-12 03:25] LABS: EPI CELLS 20 /uL (0-25.1); HYALINE CASTS 3 /uL (0-3.1); URINE APPEARANCE CLEAR; URINE BACTERIA 4 /uL (0-1359); URINE BILIRUBIN NEGATIVE (NEGATIVE); URINE COLOR DK YELLOW; URINE GLUCOSE (UA) NEGATIVE (NEGATIVE); URINE KETONE 2+ (NEGATIVE); URINE LEUK ESTERASE NEGATIVE (NEGATIVE); URINE NITRITE NEGATIVE (NEGATIVE); URINE PROTEIN 2+ (NEGATIVE); URINE RBC 29 /uL (0-23.9); URINE WBC 17 /uL (0-25.8)
[2022-04-12] MEDS ORDERED: ONDANSETRON 4 MG/2 ML VIAL ONE (03:32)
[2022-04-12 03:40] LABS: BASO % 0.5 % (0-2.0); EOS % 0.2 % (0-4.5); HEMATOCRIT 41.4 % (32.4-45.2); HEMOGLOBIN 13.8 GM/dL (10.7-15.3); LYMPH % 17.2 % (8-40); MCH 30.6 pg (25.7-33.7); MCHC 33.4 g/dl (32.0-36.0); MEAN CELL VOLUME 91.6 fl (80-96); MONO % 6.8 % (3.8-10.2); NEUT % 75.3 % (42.8-82.8); PLATELET COUNT 344 10^3/uL (134-434); RBC 4.52 M/mm3 (3.60-5.2); RDW 13.9 % (11.6-15.6); WHITE BLOOD COUNT 10.8 K/mm3 (4.0-10.0)
[2022-04-12 03:44] LABS: HCG,QUALITATIVE URINE POSITIVE
[2022-04-12 03:58] LABS: BLOOD UREA NITROGEN 6.7 mg/dL (7-18); CALCIUM 9.7 mg/dL (8.5-10.1)
[2022-04-12 04:00] LABS: CREATININE 0.6 mg/dL (0.55-1.3)
[2022-04-12 04:02] LABS: BILIRUBIN,TOTAL 0.6 mg/dL (0.2-1); TOT PROT 7.4 g/dl (6.4-8.2)
== END 2022-04-12 05:21 | disposition home or self-care (01) ==
LOC: JER 02:11
PROC: 3E033GC Introduction of Other Therapeutic Substance into Peripheral Vein, Percutaneous Approach (ICD-10-PCS; principal; 2022-04-12)
DX: O21.0 Mild hyperemesis gravidarum (principal); Z3A.01 Less than 8 weeks gestation of pregnancy
CPT/HCPCS: 36415; 80053; 81003; 84702; 84703; 85025; 86850; 86900; 86901; 99284-25

== ENCOUNTER 2022-04-16 14:45 | Inpatient (IN) | payer OTHER ==
[2022-04-16] MEDS ORDERED: TRIMETHOBENZAMIDE HCL 200MG/2ML INJ IM ONE (16:14)
[2022-04-16 16:24] LABS: HEMATOCRIT 39.4 % (32.4-45.2); HEMOGLOBIN 13.4 GM/dL (10.7-15.3); MCH 31.1 pg (25.7-33.7); MCHC 34.1 g/dl (32.0-36.0); MEAN CELL VOLUME 91.1 fl (80-96); MEAN PLT VOLUME 8.7 fl (7.5-11.1); PLATELET COUNT 331 10^3/uL (134-434); RBC 4.32 M/mm3 (3.60-5.2); RDW 13.6 % (11.6-15.6); WHITE BLOOD COUNT 11.9 K/mm3 (4.0-10.0)
[2022-04-16] MEDS ORDERED: SODIUM CHLORIDE 0.9% 500 ML INFUS.BAG IV ONE (16:26)
[2022-04-16] MEDS ORDERED: MAGNESIUM SULF 50% (8.12 MEQ/2 ML-1 GM VIAL) IVPB ONE (16:26)
[2022-04-16] MEDS ORDERED: METOCLOPRAMIDE HCL INJECTION 10 MG/2 ML VIAL IVPUSH ONE (16:26)
[2022-04-16] MEDS ORDERED: FAMOTIDINE 20 MG/50 ML IVPB 20 MG/50 ML MG IVPB ONE ×2 (16:29→16:31)
[2022-04-16] MEDS ORDERED: METOCLOPRAMIDE HCL INJECTION 10 MG/2 ML VIAL ONE (16:30)
[2022-04-16] MEDS ORDERED: MAGNESIUM SULFATE IN WATER 2 GM/50 ML IVPB IVPB ONE (16:31)
[2022-04-16 16:47] LABS: CHLORIDE 99 mmol/L (98-107); SODIUM 139 mmol/L (136-145)
[2022-04-16 16:49] LABS: ALBUMIN 4.2 g/dl (3.4-5.0); BLOOD UREA NITROGEN 7.3 mg/dL (7-18); CALCIUM 9.9 mg/dL (8.5-10.1); CO2 23 mmol/L (21-32)
[2022-04-16 16:50] LABS: GLUCOSE,RANDOM 100 mg/dL (74-106)
[2022-04-16 16:52] LABS: CREATININE 0.6 mg/dL (0.55-1.3); PHOSPHOROUS 3.7 mg/dL (2.5-4.9); SGPT/ALT 19 U/L (13-61)
[2022-04-16 16:53] LABS: SGOT/AST 16 U/L (15-37)
[2022-04-16 16:54] LABS: BILIRUBIN,TOTAL 0.8 mg/dL (0.2-1); TOT PROT 7.6 g/dl (6.4-8.2)
[2022-04-16 16:55] LABS: ALK PHOS 50 U/L (45-117)
[2022-04-16 17:41] LABS: ANION GAP 16 MMOL/L (8-16)
[2022-04-16 18:24] LABS: EPI CELLS 35 /uL (0-25.1); HYALINE CASTS 2 /uL (0-3.1); PH,URINE 6.5 (5.0-8.0); URINE APPEARANCE CLEAR; URINE BACTERIA 130 /uL (0-1359); URINE BILIRUBIN NEGATIVE (NEGATIVE); URINE COLOR YELLOW; URINE GLUCOSE (UA) NEGATIVE (NEGATIVE); URINE KETONE 4+ (NEGATIVE); URINE LEUK ESTERASE NEGATIVE (NEGATIVE); URINE NITRITE NEGATIVE (NEGATIVE); URINE PROTEIN 3+ (NEGATIVE); URINE RBC 16 /uL (0-23.9); URINE WBC 20 /uL (0-25.8)
[2022-04-16] MEDS ORDERED: LACTATED RINGERS SOLUTION 1,000 ML/1,000 ML INFUS.BAG IV SCH (18:30)
[2022-04-16] MEDS ORDERED: KCL 10 MEQ IVPB 30 MEQ/300 ML INFUS.BAG IVPB ONE (18:35)
[2022-04-16] MEDS: KCL 10 MEQ IVPB 10 MEQ/100 ML INFUS.BAG IVPB SCH ×3 (18:46→23:32)
[2022-04-16] MEDS: DEXTROSE 5%-NORMAL SALINE 1,000 ML IV SCH (23:32)
[2022-04-17 00:06] VITALS: RESP 18; BMI 23.6
[2022-04-17 02:50] LABS: PHENCYCLIDINE,URINE NEGATIVE (NEGATIVE); URINE BARBITURATES NEGATIVE (NEGATIVE); URINE BENZODIAZEPINES NEGATIVE (NEGATIVE)
[2022-04-17 02:51] LABS: COCAINE, UR NEGATIVE (NEGATIVE); OPIATES, URI NEGATIVE (NEGATIVE); URINE AMPHETAMINES NEGATIVE (NEGATIVE)
[2022-04-17 03:12] LABS: METHADONE, UR NEGATIVE (NEGATIVE)
[2022-04-17] MEDS: DEXTROSE 5%-NORMAL SALINE 1,000 ML IV SCH (07:04)
[2022-04-17] MEDS: ONDANSETRON 4 MG/2 ML VIAL IVPUSH PRN ×2 (08:52→16:07)
[2022-04-17 10:41] LABS: BASO % 0.4 % (0-2.0); EOS % 0.1 % (0-4.5); HEMATOCRIT 35.3 % (32.4-45.2); HEMOGLOBIN 11.8 GM/dL (10.7-15.3); LYMPH % 16.9 % (8-40); MCH 30.8 pg (25.7-33.7); MCHC 33.6 g/dl (32.0-36.0); MEAN CELL VOLUME 91.7 fl (80-96); MEAN PLT VOLUME 9.4 fl (7.5-11.1); MONO % 5.9 % (3.8-10.2); NEUT % 76.7 % (42.8-82.8); PLATELET COUNT 288 10^3/uL (134-434); RBC 3.85 M/mm3 (3.60-5.2); RDW 13.7 % (11.6-15.6); WHITE BLOOD COUNT 12.3 K/mm3 (4.0-10.0)
[2022-04-17 11:01] LABS: CALCIUM 9.1 mg/dL (8.5-10.1)
[2022-04-17 11:02] LABS: ALBUMIN 3.5 g/dl (3.4-5.0); BLOOD UREA NITROGEN 4.6 mg/dL (7-18); MAGNESIUM 1.8 mg/dL (1.8-2.4)
[2022-04-17 11:05] LABS: CREATININE 0.5 mg/dL (0.55-1.3); PHOSPHOROUS 3.2 mg/dL (2.5-4.9)
[2022-04-17 11:06] LABS: TOT PROT 6.5 g/dl (6.4-8.2)
[2022-04-17 11:07] LABS: BILIRUBIN,TOTAL 0.7 mg/dL (0.2-1)
[2022-04-17] MEDS: KCL 10 MEQ IVPB 10 MEQ/100 ML INFUS.BAG IVPB SCH ×3 (11:53→18:30)
[2022-04-17] MEDS ORDERED: ONDANSETRON 4 MG/2 ML VIAL IVPUSH PRN (16:37)
[2022-04-17] MEDS ORDERED: DEXTROSE 5%-0.45% SALINE 980 ML with POTASSIUM CHLORIDE 40 MEQ IV SCH (16:45)
[2022-04-17] MEDS ORDERED: DEXTROSE 5%-0.45% SALINE 1,000 ML IV SCH (16:45)
[2022-04-17] MEDS ORDERED: MELATONIN 5 MG TABLETS PO PRN (18:34)
[2022-04-18] MEDS ORDERED: ACETAMINOPHEN 1000 MG/100 ML BAG IVPB ONE (05:06)
[2022-04-18 10:38] LABS: BASO % 0.7 % (0-2.0); EOS % 0.3 % (0-4.5); HEMATOCRIT 35.8 % (32.4-45.2); HEMOGLOBIN 12.5 GM/dL (10.7-15.3); LYMPH % 24.9 % (8-40); MCH 31.9 pg (25.7-33.7); MEAN CELL VOLUME 91.1 fl (80-96); MEAN PLT VOLUME 8.9 fl (7.5-11.1); MONO % 9.8 % (3.8-10.2); NEUT % 64.3 % (42.8-82.8); PLATELET COUNT 261 10^3/uL (134-434); RBC 3.92 M/mm3 (3.60-5.2); RDW 13.5 % (11.6-15.6); WHITE BLOOD COUNT 9.9 K/mm3 (4.0-10.0)
[2022-04-18 10:44] LABS: CHLORIDE 102 mmol/L (98-107); SODIUM 137 mmol/L (136-145)
[2022-04-18 11:01] LABS: BLOOD UREA NITROGEN 3.3 mg/dL (7-18); CALCIUM 9.3 mg/dL (8.5-10.1); GLUCOSE,RANDOM 111 mg/dL (74-106); MAGNESIUM 1.8 mg/dL (1.8-2.4)
[2022-04-18 11:02] LABS: ALBUMIN 3.5 g/dl (3.4-5.0)
[2022-04-18 11:04] LABS: ALK PHOS 44 U/L (45-117); CO2 24 mmol/L (21-32); SGPT/ALT 18 U/L (13-61); TOT PROT 6.5 g/dl (6.4-8.2)
[2022-04-18 11:05] LABS: SGOT/AST 15 U/L (15-37)
[2022-04-18 11:08] LABS: ANION GAP 11 MMOL/L (8-16); CREATININE 0.5 mg/dL (0.55-1.3)
[2022-04-18] MEDS ORDERED: D5-1/2NS+40 MEQ KCL - 40 MEQ/1,000 ML INFUS.BAG IV SCH (12:30)
[2022-04-18 17:24] VITALS: BP 133/73; PULSE 65; TEMP 99.1
[2022-04-19] MEDS ORDERED: PRENATAL VITAMINS W/ FOLIC ACID TABLET (FP) PO SCH (10:00)
== END 2022-04-18 18:24 | disposition left against medical advice (07) | DRG 566 ==
LOC: JER 14:45 → JERBED 19:34 → OBSVTOIN 23:09 → J5S 23:18
PROVIDERS: ADMIT Internal Medicine; ATTEND Internal Medicine
DX: O21.1 Hyperemesis gravidarum with metabolic disturbance (principal); O99.321 Drug use complicating pregnancy, first trimester; E86.0 Dehydration; D72.829 Elevated white blood cell count, unspecified; F12.10 Cannabis abuse, uncomplicated; R63.0 Anorexia; Z3A.08 8 weeks gestation of pregnancy
CPT/HCPCS: 0241U-QW; 36415; 76801-TC; 80053; 80307; 81003; 83735; 84100; 84702; 85025; 85027; 87086; 93005; 93010; 99285-25; G0378

== ENCOUNTER 2023-04-10 19:20 | Emergency (ER) | payer OTHER ==
[2023-04-10 19:34] VITALS: BP 108/72; PULSE 69; RESP 18; TEMP 99.2; BMI 22.6
[2023-04-10] MEDS ORDERED: SODIUM CHLORIDE 1,000 ML IV STA (21:38)
[2023-04-10] MEDS ORDERED: ONDANSETRON 4 MG/2 ML VIAL IVPUSH ONE (21:39)
[2023-04-10] MEDS ORDERED: FAMOTIDINE 20 MG/50 ML IVPB 20 MG/50 ML MG IVPB ONE ×2 (21:39→22:49)
[2023-04-10] MEDS ORDERED: MAG HYDROX/AL HYDROX/SIMETH 30 ML UNIT-DOSE CUP PO ONE (21:39)
[2023-04-10] MEDS ORDERED: MAG HYDROX/AL HYDROX/SIMETH 30 ML UNIT-DOSE CUP ONE (22:46)
[2023-04-10] MEDS ORDERED: ONDANSETRON 4 MG/2 ML VIAL ONE (22:46)
[2023-04-11 00:12] LABS: BASO % 0.6 % (0-2.0); EOS % 0.1 % (0-4.5); HEMATOCRIT 43.7 % (32.4-45.2); HEMOGLOBIN 14.5 GM/dL (10.7-15.3); LYMPH % 9.7 % (8-40); MCH 30.9 pg (25.7-33.7); MCHC 33.2 g/dl (32.0-36.0); MEAN CELL VOLUME 93.1 fl (80-96); MEAN PLT VOLUME 8.8 fl (7.5-11.1); NEUT % 84.6 % (42.8-82.8); PLATELET COUNT 271 10^3/uL (134-434); RBC 4.69 M/mm3 (3.60-5.2); RDW 14.4 % (11.6-15.6)
[2023-04-11 01:35] LABS: CHLORIDE 104 mmol/L (98-107); POTASSIUM 3.7 mmol/L (3.5-5.1); SODIUM 140 mmol/L (136-145)
[2023-04-11 01:37] LABS: ALBUMIN 4.2 g/dl (3.4-5.0); ANION GAP 8 mmol/L (4-13); BLOOD UREA NITROGEN 15.7 mg/dL (7-18); CALCIUM 9.9 mg/dL (8.5-10.1); CO2 28 mmol/L (21-32); GLUCOSE,RANDOM 110 mg/dL (74-106)
[2023-04-11 01:40] LABS: CREATININE 0.5 mg/dL (0.55-1.3); SGOT/AST 27 U/L (15-37); SGPT/ALT 25 U/L (13-61)
[2023-04-11 01:42] LABS: BILIRUBIN,TOTAL 0.5 mg/dL (0.2-1); TOT PROT 7.9 g/dl (6.4-8.2)
[2023-04-11 01:43] LABS: ALK PHOS 53 U/L (45-117)
== END 2023-04-11 02:32 | disposition home or self-care (01) ==
LOC: JER 19:20
PROC: 3E033GC Introduction of Other Therapeutic Substance into Peripheral Vein, Percutaneous Approach (ICD-10-PCS; principal; 2023-04-10)
PROC: 3E033GC Introduction of Other Therapeutic Substance into Peripheral Vein, Percutaneous Approach (ICD-10-PCS; 2023-04-10)
DX: R11.2 Nausea with vomiting, unspecified (principal); R10.30 Lower abdominal pain, unspecified; R63.8 Other symptoms and signs concerning food and fluid intake; Z20.822 Contact with and (suspected) exposure to COVID-19
CPT/HCPCS: 0241U-QW; 36415; 80053; 84702; 84703; 85025; 96374; 96375; 99284-25